=== PATIENT | female | born 1960 | race Caucasian/White ===

== ENCOUNTER → 2017-12-12 | Day surgery (SDC) | payer BC ==
[2017-12-09 16:02] LABS: Basophils # (auto) 0.1 uL; Basophils % (auto) 1.3 % (0.0-2.0); Eosinophils # (auto) 0.4 uL; Eosinophils % (auto) 5.4 % (0.0-7.0); Hematocrit 41.1 % (36.0-46.0); Hemoglobin 13.6 g/dL (12.2-16.2); Lymphocytes # (auto) 2.3 uL; Lymphocytes % (auto) 29.6 % (10.0-50.0); Mean Corpuscular Hemoglobin 29.4 pg (28.0-32.0); Mean Corpuscular Hgb Conc. 33.1 g/dL (32.0-36.0); Mean Corpuscular Volume 88.8 fL (80.0-100.0); Monocytes # (auto) 0.6 uL; Neutrophils # (auto) 4.3 uL; Neutrophils % (auto) 55.7 % (37.0-80.0); Platelet Count (auto) 321 10^3/uL (140-450); Red Blood Cells 4.63 10^6/uL (4.0-5.20); Red Cell Distribution Width 13.7 % (11.8-14.3); White Blood Cell 7.8 10^3/uL (4.4-10.8)
[2017-12-09 16:18] LABS: Urine Bacteria FEW /hpf (None Seen); Urine Blood Negative /uL (Negative); Urine Mucus FEW (None Seen); Urine WBC 2 /hpf (0 - 5)
[2017-12-09 16:21] LABS: Albumin 4.1 g/dL (3.4-5.0); BUN/Creatinine Ratio 12.7; Bilirubin, Total 0.2 mg/dL (0.2-1.0); Calcium 9.2 mg/dL (8.5-10.1); Potassium 4.2 mmol/L (3.5-5.1); Total Protein 7.6 g/dL (6.4-8.2); Uric Acid 5.3 mg/dL (2.6-6.0)
[2017-12-09 16:30] LABS: INR 0.92 (0.9-1.15); Partial Thromboplastin Time 27.9 sec (23.78-33.04); Prothrombin Time 9.9 sec (9.27-12.13)
[~2017-12-12] VITALS: Ht 170.2 cm; Wt 104.3 kg
[~2017-12-12] MED LIST: AMLO5TAB2 PO; BUPIVACAINE 0.25% INJ 50ML VIAL ONE; CARI-316 PO; CONJ ESTROGENS 0.625MG/GM VAG CRM 30GM PV ONE; DEXAMETHASONE SOD PHOS 10MG/1ML VIAL INJ ONE; FERRIC SUBSULFATE TOPICAL SOLN 30 ML BTL ONE; HYDROmorphone HCL 2 MG/ML VL ONE; KETOROLAC TROMETH 30 MG/ML 1ML VIAL IV ONE; KETOROLAC TROMETH 60MG/2ML VIAL IM ONE; LIDOCAINE W/ EPINEPHRINE 1 % INJ 30ML ONE; MEPERIDINE HCL (50 MG/ML) 1 ML VIAL ONE; METHYLENE BLUE 0.5% 5MG/ML 10ml AMP IV ONE; METOCLOPRAMIDE HCL 5MG/ml INJ 2ml VIAL IV ONE; MIDAZOLAM HCL 1MG/1ML-2 ML VIAL ONE; MORPHINE SULF INJ 2 MG/ML SYRINGE 1ML ONE; MORPHINE SULFATE 8mg/ml INJ SDV IV ONE; ONDANSETRON HCL 4 MG/2 ML VIAL ONE; PROPOFOL 10 MG/ML 20 ML IV ONE; ROCURONIUM 10MG/ML 10ML VIAL IV ONE; SERT-274 PO; SODIUM CHLORIDE LOCK 10 ML ONE; SUCCINYLCHOLINE CHLORIDE 20 MG/ML 10ML VIAL IV ONE; ceFOXitin 2GM/100ML 100 ML IV ONE; fentaNYL CITRATE 100 MCG/2 ML VL ONE
[2017-12-12] MEDS: MORPHINE SULFATE 8mg/ml INJ SDV IV PRN ×2 (11:45→12:15)
[2017-12-12 13:45] VITALS: BP 132/83
== END ==
LOC: SUR 08:32
PROVIDERS: ATTEND Urology
DX: N81.10 Cystocele, unspecified (principal); N39.3 Stress incontinence (female) (male); F32.9 Major depressive disorder, single episode, unspecified; I10 Essential (primary) hypertension; E66.01 Morbid (severe) obesity due to excess calories; Z68.36 Body mass index [BMI] 36.0-36.9, adult; Z79.2 Long term (current) use of antibiotics; Z90.710 Acquired absence of both cervix and uterus; Z79.899 Other long term (current) drug therapy
CPT/HCPCS: 36415; 57106; 57240; 57282; 57288; 80053; 81001; 84550; 85025; 85610; 85730; J0330; J0694; J1100; J1885; J2001; J2175; J2250; J2270; J2405; J2704; J3010; J3490; C1771